=== PATIENT | female | born 1975 | race African-American/Black ===

== ENCOUNTER 2018-04-07 19:20 | Emergency (ER) | payer OTHER ==
[~2018-04-07] VITALS: Ht 167.6 cm; Wt 104.3 kg
--- NOTE | 2018-04-07 19:20 | NUR ---
Patient BIBA BLS, transferred to bed 11. RN evaluating patient at bedside.
[2018-04-07 19:23] VITALS: BP 163/111
--- NOTE | 2018-04-07 19:30 | NUR ---
Dr. Menjivar evaluating patient at bedside.
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
[2018-04-07] MEDS ORDERED: IBUPROFEN 800 MG TAB PO ONE (19:45)
--- NOTE | 2018-04-07 19:47 | NUR ---
PT REFUSED MEDICATION AT THIS TIME
[2018-04-07 20:00] VITALS: BP 150/95
== END 2018-04-07 20:00 | disposition home or self-care (01) ==
LOC: MED 19:20
DX: S13.4XXA Sprain of ligaments of cervical spine, initial encounter (principal); E11.9 Type 2 diabetes mellitus without complications; I10 Essential (primary) hypertension; V43.52XA Car driver injured in collision with other type car in traffic accident, initial encounter; Y93.I9 Activity, other involving external motion; Y92.488 Other paved roadways as the place of occurrence of the external cause; Y99.8 Other external cause status
CPT/HCPCS: 99283